=== PATIENT | female | born 1950 | race African-American/Black ===

== ENCOUNTER 2023-03-23 11:37 | Inpatient (IN) | payer MEDICARE ==
[2023-03-23 17:06] VITALS: BMI 21.0
[2023-03-23] MEDS ORDERED: Ondansetron PF 4 MG/2 ML Vial IVP PRN (17:06)
[2023-03-23] MEDS ORDERED: Ondansetron ODT 4 MG TAB PO PRN (17:06)
[2023-03-23] MEDS: Azithromycin 500 MG in Sodium Chloride 0.9% 250 ML 250 ML IVPB SCH (18:15)
[2023-03-23] MEDS: methylPREDNISolone Sod Succ 40 MG VIAL IVP SCH (18:16)
[2023-03-23 18:54] LABS: Troponin I 0.025 ng/mL (< 0.028)
[2023-03-23] MEDS: Ipratropium/Albuterol 3 ML NEB NEB SCH (19:50)
[2023-03-23] MEDS ORDERED: Nicotine 14 MG PATCH TOP PRN (21:26)
[2023-03-24] MEDS: methylPREDNISolone Sod Succ 40 MG VIAL IVP SCH ×5 (00:21→23:54)
[2023-03-24] MEDS: Ipratropium/Albuterol 3 ML NEB NEB SCH ×4 (00:25→20:25)
[2023-03-24 03:19] LABS: Hematocrit 35.7 % (34.9-44.5); Hemoglobin 12.1 g/dL (12.0-15.5); Mean Corpuscular HGB CONC 33.9 g/dL (32.0-36.0); Mean Corpuscular Hemoglobin 31.1 pg (27.0-33.0); Mean Corpuscular Volume 91.8 fl (81.6-98.3); Mean Platelet Volume 10.3 fl (7.4-10.4); Platelet Count 193 10x3/uL (150-450); RBC Distribution Width 13.1 % (11.5-14.5); Red Blood Cell (RBC) Count 3.89 10x6/uL (3.90-5.03); White Blood Cell (WBC) Count 5.6 10x3/uL (3.5-10.5)
[2023-03-24 03:21] LABS: MDiff Complete? YES
[2023-03-24 03:37] LABS: Platelet Adequacy Comment Appears Adequate; RBC Morph Comment Within Normal Limits
[2023-03-24 03:39] LABS: Anion Gap 14 mmol/L (10-20); BUN (Urea Nitrogen) 11 mg/dL (9.8-20.1); Calc. Creatinine Clearance 59 mL/min (70-130); Calcium 8.9 mg/dL (7.8-10.44); Carbon Dioxide 19 mmol/L (23-31); Chloride 111 mmol/L (98-107); Estimated GFR 84; Glucose 189 mg/dL (83-110); Potassium 3.3 mmol/L (3.5-5.1); Sodium 141 mmol/L (136-145)
[2023-03-24 03:40] LABS: Band 12 % (5-11); Lymphocytes 17 % (21-51); Metamyelocyte 2 % (0-0); Monocytes 1 % (0-10); Neutrophil 68 % (42-75)
[2023-03-24] MEDS: Losartan 25 MG TAB PO SCH (09:02)
[2023-03-24] MEDS: Sertraline 25 MG TAB PO SCH (09:02)
[2023-03-24] MEDS ORDERED: Potassium Chloride 20 MEQ TAB PO SCH (13:45)
[2023-03-24] MEDS: Potassium Chloride 20 MEQ TAB PO SCH (18:43)
[2023-03-24] MEDS: Azithromycin 500 MG in Sodium Chloride 0.9% 250 ML 250 ML IVPB SCH (18:43)
[2023-03-24] MEDS ORDERED: Acetaminophen 325 MG TAB PO PRN (21:18)
[2023-03-25] MEDS: Ipratropium/Albuterol 3 ML NEB NEB SCH ×3 (00:35→13:05)
[2023-03-25] MEDS: methylPREDNISolone Sod Succ 40 MG VIAL IVP SCH ×2 (05:32→13:30)
[2023-03-25 05:37] LABS: Hemoglobin 10.4 g/dL (12.0-15.5); Mean Corpuscular HGB CONC 33.5 g/dL (32.0-36.0); Mean Corpuscular Hemoglobin 30.9 pg (27.0-33.0); Mean Platelet Volume 11.2 fl (7.4-10.4); Platelet Count 218 10x3/uL (150-450); Red Blood Cell (RBC) Count 3.37 10x6/uL (3.90-5.03); White Blood Cell (WBC) Count 8.5 10x3/uL (3.5-10.5)
[2023-03-25 05:51] LABS: Anion Gap 11 mmol/L (10-20); BUN (Urea Nitrogen) 13 mg/dL (9.8-20.1); Calc. Creatinine Clearance 63 mL/min (70-130); Calcium 8.7 mg/dL (7.8-10.44); Carbon Dioxide 20 mmol/L (23-31); Chloride 112 mmol/L (98-107); Estimated GFR 91; Glucose 253 mg/dL (83-110); Potassium 2.7 mmol/L (3.5-5.1); Sodium 140 mmol/L (136-145)
[2023-03-25 06:41] LABS: MDiff Complete? YES; Platelet Adequacy Comment Appears Adequate; RBC Morph Comment Within Normal Limits
[2023-03-25 06:42] LABS: Band 3 % (5-11); Lymphocytes 16 % (21-51); Monocytes 4 % (0-10); Neutrophil 76 % (42-75); Reactive Lymphocytes 1 % (0-10)
[2023-03-25] MEDS: Losartan 25 MG TAB PO SCH (08:37)
[2023-03-25] MEDS: Sertraline 25 MG TAB PO SCH (08:37)
[2023-03-25] MEDS: Potassium Chloride 20 MEQ TAB PO SCH (08:38)
[2023-03-25 21:32] VITALS: BP 159/74; TEMP 98.3
== END 2023-03-25 16:10 | disposition home or self-care (01) | DRG 191 ==
LOC: EDBD → CSHTELE 13:12 → OBSVTOIN 03-24 13:52
PROVIDERS: ADMIT Family Medicine; ATTEND Family Medicine
DX: J44.1 Chronic obstructive pulmonary disease with (acute) exacerbation (principal); E87.20 Acidosis, unspecified; E87.6 Hypokalemia; I10 Essential (primary) hypertension; F32.A Depression, unspecified; F17.210 Nicotine dependence, cigarettes, uncomplicated; E55.9 Vitamin D deficiency, unspecified; Z88.0 Allergy status to penicillin; Z79.899 Other long term (current) drug therapy; Z98.890 Other specified postprocedural states; Z71.6 Tobacco abuse counseling
CPT/HCPCS: 36415; 80048; 82306; 85025; 87040; 94760; 94762; 96374; 96375; 96376; G0378; J0456; J2920; J7050; J7620